=== PATIENT | male | born 1940 | race Caucasian/White ===

== ENCOUNTER 2017-01-12 01:56 | Emergency (ER) | payer MEDICARE, OTHER ==
[2017-01-10 15:15] VITALS: BMI 27.6
[~2017-01-12 01:56] MED LIST: AMITRIPTYLINE H50 MG PO; ASPIRIN81 MG PO; CINNAMON500 MG PO; DOXYCYCLINE HY100 M2 PO; FERROUS SULFAT325 MG PO; FISH OIL 1,0001 CA1 PO; FOLBIC RF TABL1 EACH PO; JANUMET 50-5001 TAB PO; LIPITOR40 MG PO; PLAVIX75 MG PO; VITAMIN D31000 UNIT PO; XANAX0.25 MG PO; ZEBETA5 MG PO; ZOVIRAX200 MG PO
[2017-01-12 03:03] LABS: APPEARANCE HAZY (CLEAR); COLOR PINK (YELLOW)
[2017-01-12 03:04] LABS: AMORPHOUS SEDIMENT <1+ /lpf (NONE SEEN); BACTERIA FEW /hpf (NONE SEEN); BILIRUBIN NEGATIVE (NEGATIVE); EPITHELIAL CELLS NSEEN /hpf (0-5); GLUCOSE NEGATIVE (NEGATIVE); KETONE NEGATIVE (NEGATIVE); LEUKOCYTE ESTERASE 2+ (NEGATIVE); NITRITE NEGATIVE (NEGATIVE); PROTEIN 1+ mg/dL (NEGATIVE); SPECIFIC GRAVITY 1.005 (1.005-1.020); UROBILINOGEN NORMAL (NORMAL); WHITE CELLS - URINE 25-50 /hpf (0-5)
== END 2017-01-12 03:35 | disposition home or self-care (01) ==
LOC: D.ER 01:56
PROVIDERS: Emergency Medicine
DX: N39.0 Urinary tract infection, site not specified (principal); I10 Essential (primary) hypertension; E78.5 Hyperlipidemia, unspecified; C90.00 Multiple myeloma not having achieved remission

== ENCOUNTER 2017-04-18 05:03 | Inpatient (IN) | payer MEDICARE, OTHER ==
[2017-04-18 06:03] LABS: BASOPHILS 0.1 % (0-2); EOSINOPHILS 1.9 % (0-7); HEMOGLOBIN 14.1 g/dL (13.5-17.5); IMMATURE GRANULOCYTES 0.1 % (0-5); LYMPHOCYTES 42.9 % (15-50); MCH 30.7 pg (26.0-34.0); MCHC 33.6 g/dL (31.0-37.0); MCV 91.5 fL (80.0-100.0); MEAN PLATELET VOLUME 10.7 fL (7.4-10.4); RBC 4.59 10x6/uL (4.20-6.10); WBC 6.8 10x3/uL (4.8-10.8)
[2017-04-18 06:05] LABS: PLATELET COUNT 84 10x3/uL (130-400)
[2017-04-18 06:07] LABS: APTT 28.9 SECONDS (22.8-39.4); INR 0.92 (0.85-1.17); PROTIME 12.3 SECONDS (11.6-15.0)
[2017-04-18 06:11] LABS: ALBUMIN 3.9 g/dL (3.4-5.0); ALKALINE PHOSPHATASE 71 U/L (46-116); ALT (SGPT) 23 U/L (10-68); CALC OSMOLALITY 285 mosm/kg (275-300); CALCIUM 9.3 mg/dL (8.5-10.1); CARBON DIOXIDE 26.4 mmol/L (21.0-32.0); CHLORIDE - SERUM 104 mmol/L (98-107); CREATININE - SERUM 1.8 mg/dL (0.6-1.3); GLUCOSE 142 mg/dL (74-106); POTASSIUM - SERUM 4.2 mmol/L (3.5-5.1); SODIUM 138 mmol/L (136-145); UREA NITROGEN 36 mg/dL (7-18); eGFR NON AFRICAN AMERICAN 39 mL/min (90-120)
[2017-04-18 06:23] LABS: CHOL - HDL RATIO 2.8 ratio (2.3-4.9); CHOLESTEROL, TOTAL 124 mg/dL (0-200); CKMB 1.8 U/L (0.0-3.6); CREATINE KINASE 75 UL (21-232); HDL CHOLESTEROL 44 mg/dL (32-96); LDL CHOLESTEROL 47 mg/dL (0-100); LDL-HDL RATIO 1.1 ratio (1.5-3.5); TRIGLYCERIDE 167 mg/dL (30-200); TROPONIN-I < 0.017 ng/mL (0.000-0.060)
[2017-04-18 06:36] LABS: PLATELET ESTIMATE DECREASED
[2017-04-18 09:26] LABS: AMYLASE - SERUM 94 U/L (25-115); LIPASE 422 U/L (73-393)
--- NOTE | 2017-04-18 10:34 | NUR ---
RECEIVED PT FROM ER VIA W/C AAOX4 RESP UNLABORED SKIN W/D COLOR WNL C/O ABD CHEST PAIN 03/31
[2017-04-18 12:23] VITALS: BP 149/69
[2017-04-18 14:20] LABS: CKMB 1.9 U/L (0.0-3.6); CREATINE KINASE 62 UL (21-232)
[2017-04-18 14:24] LABS: TROPONIN-I < 0.017 ng/mL (0.000-0.060)
[2017-04-18 14:36] VITALS: BP 149/69; BMI 26.5
[2017-04-18 19:28] LABS: CKMB 1.1 U/L (0.0-3.6); CREATINE KINASE 42 UL (21-232)
[2017-04-18 19:30] LABS: TROPONIN-I < 0.017 ng/mL (0.000-0.060)
[2017-04-18 20:00] VITALS: BP 127/52
[2017-04-19] VITALS (10 sets, daily range): BP systolic 111–121; BP diastolic 43–67; BMI 23.0
[2017-04-19 05:53] LABS: BASOPHILS 0.1 % (0-2); EOSINOPHILS 0 % (0-7); HEMATOCRIT 42.4 % (42.0-54.0); HEMOGLOBIN 14.2 g/dL (13.5-17.5); IMMATURE GRANULOCYTES 0.3 % (0-5); LYMPHOCYTES 7.4 % (15-50); MCH 30.9 pg (26.0-34.0); MCHC 33.5 g/dL (31.0-37.0); MCV 92.4 fL (80.0-100.0); MONOCYTES 8.4 % (2-11); NEUTROPHILS 83.8 % (40-80); PLATELET COUNT 90 10x3/uL (130-400); RBC 4.59 10x6/uL (4.20-6.10); RDW 14.3 % (11.5-14.5)
[2017-04-19 05:59] LABS: WBC 17.3 10x3/uL (4.8-10.8)
[2017-04-19 06:20] LABS: ALBUMIN 3.4 g/dL (3.4-5.0); ANION GAP 13.2 mmol/L (8-16); BILIRUBIN - TOTAL 0.9 mg/dL (0.2-1.3); C-REACTIVE PROTEIN 14.1 mg/dL (0.0-0.9); CALCIUM 8.5 mg/dL (8.5-10.1); CARBON DIOXIDE 25.2 mmol/L (21.0-32.0); CREATININE - SERUM 1.9 mg/dL (0.6-1.3); POTASSIUM - SERUM 4.4 mmol/L (3.5-5.1); PROTEIN - SERUM 6.7 g/dL (6.4-8.2)
[2017-04-19 16:10] LABS: HEMOGLOBIN 10.1 g/dL (13.5-17.5); MCH 29.8 pg (26.0-34.0); MCHC 32.6 g/dL (31.0-37.0); MCV 91.4 fL (80.0-100.0); MEAN PLATELET VOLUME 11.4 fL (7.4-10.4); PLATELET COUNT 42 10x3/uL (130-400); RBC 3.39 10x6/uL (4.20-6.10); RDW 14.9 % (11.5-14.5); WBC 20.8 10x3/uL (4.8-10.8)
[2017-04-19 16:40] LABS: EOSINOPHILS 1 % (0-7); LYMPHOCYTES 25 % (15-50); MONOCYTES 1 % (2-11); NEUTROPHILS 73 % (40-80); PLATELET ESTIMATE DECREASED
--- NOTE | 2017-04-19 17:30 | NUR ---
REC'D REPORT FROM SAMI, RECOVERY ROOM NURSE, PT DROWSY, AROUSABLE TO VERBAL STIMULI, FOLLOWS COMMANDS, CONFUSED, O2 VIA NC AT 6L CHANGED TO 2 L, SAT 99%, HE IS WEARING HIS GLASSES, ABDOMEN WITH MARCY DRAIN TO RIGHT LOWER SIDE, 75 CC BLOODY DRAINAGE TO BULB, SCD'S IN USE, ASSESSMENT COMPLETED PER FLOWSHEET, C/O PAIN 5/10 TO RIGHT SIDE WHEN COUGHING, PILLOW GIVEN TO HOLD WHILE COUGHING, JYOTI CALLED TO BEDSIDE, STATUS UPDATED, PASSWORD "[id number]" OBTAINED, VOICES NO NEEDS AT THIS TIME, INITIATED NS IVF PER MAR FLOWSHEET, ACCLAMATED TO ICU CALL LIGHT IN REACH
--- NOTE | 2017-04-19 17:36 | NUR ---
PATIENT TAKEN TO ICU, RECOVERED IN ICU ROOM 10 BY RECOVERY ROOM NURSE SAMI ROBLES RN AND MIC MARRERO RN.
--- NOTE | 2017-04-19 19:25 | NUR ---
SHIFT ASSESSMENT COMPLETE, PATIENT SLEEPING WHEN I ENTERED ROOM, WOKE TO VOICE. A&O X4. S1S2 NOTED, NSR, PACEMAKER PACING WITH HR OF 60. LUNG SOUNDS CLEAR. ABDOMEN DISTENDED. INCISIONS X2, WNL. MARCY DRAIN DRAINING BLOODY DRAINAGE. MARCY COMPRESSED. BOWEL SOUNDS HYPOACTIVE. INCONTINENT OF URINE, WEARING BRIEF. PERIPHERAL PULSES +2, PIV IN RH AND LH. DRESSING C/D/I. SCD'S PRESENT. DENIES NEED AT THIS TIME, WILL MONITOR. VSS.
--- NOTE | 2017-04-19 20:00 | NUR ---
DR MARIE AT BEDSIDE. NO NEW ORDERS RECEIVED.
--- NOTE | 2017-04-19 21:00 | NUR ---
NIGHT MEDS GIVEN, AT BEDSIDE.
--- NOTE | 2017-04-19 22:00 | NUR ---
BRIEF SOAKED WITH URINE. CHANGED AND CLEANED UP.
--- NOTE | 2017-04-19 23:05 | NUR ---
REASSESSMENT COMPLETE. SEE FLOWSHEET. NO CHANGES FROM PREVIOUS ASSESSMENT. VSS.
[2017-04-20] VITALS (14 sets, daily range): BP systolic 104–135; BP diastolic 48–84
--- NOTE | 2017-04-20 01:05 | NUR ---
BRIEF SOAKED. CHANGED AND CLEANED UP. TOLERATED WELL.
--- NOTE | 2017-04-20 03:05 | NUR ---
REASSESSMENT COMPLETE, NO ACUTE CHANGES, SEE FLOWSHEET. VSS.
--- NOTE | 2017-04-20 04:00 | NUR ---
BRIEF SOAKED, CHANGED AND CLEANED.
--- NOTE | 2017-04-20 05:20 | NUR ---
RESTING WITH EYES CLOSED, VSS. RR EVEN AND NON LABORED.
[2017-04-20 05:44] LABS: BASOPHILS 0 % (0-2); EOSINOPHILS 0.1 % (0-7); HEMATOCRIT 27.4 % (42.0-54.0); HEMOGLOBIN 9.4 g/dL (13.5-17.5); IMMATURE GRANULOCYTES 0.1 % (0-5); MCH 30.1 pg (26.0-34.0); MCHC 34.3 g/dL (31.0-37.0); MEAN PLATELET VOLUME 9.1 fL (7.4-10.4); MONOCYTES 8.9 % (2-11); NEUTROPHILS 79.9 % (40-80); RBC 3.12 10x6/uL (4.20-6.10); RDW 16.7 % (11.5-14.5)
[2017-04-20 05:59] LABS: ANION GAP 12.5 mmol/L (8-16); BILIRUBIN - TOTAL 0.8 mg/dL (0.2-1.3); CALCIUM 7.3 mg/dL (8.5-10.1); CARBON DIOXIDE 22.9 mmol/L (21.0-32.0); POTASSIUM - SERUM 4.4 mmol/L (3.5-5.1)
[2017-04-20 06:00] LABS: ALBUMIN 2.1 g/dL (3.4-5.0); PROTEIN - SERUM 4.8 g/dL (6.4-8.2)
[2017-04-20 06:01] LABS: MCV 87.8 fL (80.0-100.0); PLATELET COUNT 84 10x3/uL (130-400)
[2017-04-20 06:07] LABS: C-REACTIVE PROTEIN 15.2 mg/dL (0.0-0.9)
[2017-04-20 06:19] LABS: INR 1.37 (0.85-1.17); PROTIME 16.8 SECONDS (11.6-15.0)
--- NOTE | 2017-04-20 07:15 | NUR ---
AROUSES EASILY TO VERBAL STIMULI. ORIENTED. NO C/O PAIN. SEE FLOWSHEET FOR ASSESSMENT
--- NOTE | 2017-04-20 09:00 | NUR ---
AT BEDSIDE. CONDITION UPDATE GIVEN. NO DISTRESS NOTED.
--- NOTE | 2017-04-20 11:30 | NUR ---
UP IN CHAIR WITH ASSISTANCE FROM PT. NO DISTRESS NOTED.
--- NOTE | 2017-04-20 13:00 | NUR ---
BACK TO BED. SOMEWHAT CONFUSED. BED ALARM ON. REORIENTED TO PLACE AND SITUATION.
--- NOTE | 2017-04-20 14:00 | NUR ---
ATTEMPTING TO GET OOB. REORIENTED AND BED ALARM ON.
--- NOTE | 2017-04-20 16:50 | NUR ---
TRANSFERRED TO ROOM 2226 VIA BED. NURSE TO RECEIVE. FAMILY AT BEDSIDE.
--- NOTE | 2017-04-20 17:43 | NUR ---
REHAB PRESCREEN: PT WILL REQUIRE AT PT AND OT EVAL TO BE ABLE TO DO A SCREEN. WILL FOLLOW UP WHEN EVALS ARE DONE. THANK YOU FOR THIS EVAL. MERLINE ALARCON LPN
[2017-04-21] VITALS (20 sets, daily range): BP systolic 91–150; BP diastolic 55–82
[2017-04-21 06:06] LABS: BASOPHILS 0 % (0-2); EOSINOPHILS 1.2 % (0-7); HEMATOCRIT 23.6 % (42.0-54.0); HEMOGLOBIN 7.9 g/dL (13.5-17.5); IMMATURE GRANULOCYTES 0.2 % (0-5); LYMPHOCYTES 15.7 % (15-50); MCH 29.2 pg (26.0-34.0); MCHC 33.5 g/dL (31.0-37.0); MCV 87.1 fL (80.0-100.0); MONOCYTES 6.8 % (2-11); NEUTROPHILS 76.1 % (40-80); PLATELET COUNT 71 10x3/uL (130-400); RBC 2.71 10x6/uL (4.20-6.10); RDW 15.9 % (11.5-14.5); WBC 5.9 10x3/uL (4.8-10.8)
[2017-04-21 06:25] LABS: ALBUMIN 1.9 g/dL (3.4-5.0); ANION GAP 11.8 mmol/L (8-16); BILIRUBIN - TOTAL 0.5 mg/dL (0.2-1.3); CALCIUM 7.3 mg/dL (8.5-10.1); CARBON DIOXIDE 23.2 mmol/L (21.0-32.0); CREATININE - SERUM 1.8 mg/dL (0.6-1.3); INR 1.18 (0.85-1.17); MAGNESIUM - SERUM 1.7 mg/dL (1.8-2.4); PHOSPHOROUS 2.2 mg/dL (2.5-4.9); PROTEIN - SERUM 4.7 g/dL (6.4-8.2); PROTIME 14.9 SECONDS (11.6-15.0)
[2017-04-21 06:39] LABS: C-REACTIVE PROTEIN 23.2 mg/dL (0.0-0.9)
--- NOTE | 2017-04-21 07:30 | NUR ---
RECIEVED PT DURING WALKING ROUNDS. PT ASKING FOR ASSISTANCT TO URINATE. PT STOOD ON SIDE OF BED WITH MINIMAL ASSISTANCE. ASSITED PT BACK TO BED. ASSESSMENT DONE PER FLOWSHEET. BED IN LOW POSITION AND CALL LIGHT WITHIN REACH. WILL CONTINUE TO MONITOR.
--- NOTE | 2017-04-21 11:50 | NUR ---
MARCY DRAIN REMOVED BY , DRESSING APPLIED. PT RESTING IN BED WITH NO COMPLAINTS OF PAIN OR DISCOMFORT. BED IN LOW POSITION AND CALL LIGHT WITHIN REACH.
[2017-04-22 00:40] VITALS: BP 99/63
[2017-04-22 04:00] VITALS: BP 118/54
[2017-04-22 05:40] LABS: BASOPHILS 0 % (0-2); EOSINOPHILS 1.6 % (0-7); IMMATURE GRANULOCYTES 0.1 % (0-5); LYMPHOCYTES 11.9 % (15-50); MCH 29.5 pg (26.0-34.0); MCHC 34.5 g/dL (31.0-37.0); MCV 85.5 fL (80.0-100.0); MEAN PLATELET VOLUME 10.3 fL (7.4-10.4); MONOCYTES 7.4 % (2-11); RDW 15.1 % (11.5-14.5)
[2017-04-22 05:48] LABS: HEMATOCRIT 30.7 % (42.0-54.0); HEMOGLOBIN 10.6 g/dL (13.5-17.5); PLATELET COUNT 98 10x3/uL (130-400); RBC 3.59 10x6/uL (4.20-6.10); WBC 7.7 10x3/uL (4.8-10.8)
[2017-04-22 06:05] LABS: ALBUMIN 2.3 g/dL (3.4-5.0); ANION GAP 12.4 mmol/L (8-16); CALCIUM 7.6 mg/dL (8.5-10.1); CARBON DIOXIDE 22.4 mmol/L (21.0-32.0); CREATININE - SERUM 1.6 mg/dL (0.6-1.3); POTASSIUM - SERUM 3.8 mmol/L (3.5-5.1); PROTEIN - SERUM 5.6 g/dL (6.4-8.2)
--- NOTE | 2017-04-22 06:32 | NUR ---
PT HAS 11 LOOSE STOOLS THROUGHOUT NIGHT. CDT CAME BACK POSITIVE. PLACED PT IN ENTERIC ISOLATION. USING BLEACH WIPES FOR CLEANING IN ROOM. INFUSED 2ND UNIT OF PRBC'S - NO ADVERSE REACTION AND VITAL SIGNS STABLE. RIGHT SIDE DRAIN SITE LEAKING SEROSANG FLUID. CHANGED DRESSING. GAVE ZOFRAN FOR NAUSEA ONCE THIS AM. BUTTOCKS REDDENED FROM DIARRHEA. APPLYING BUTT PASTE NEEDED. NO OTHER NEEDS. AT BEDSIDE. WILL CONTINUE TO MONITOR.
--- NOTE | 2017-04-22 07:13 | NUR ---
REPORT RECEIVED FROM TUBING MACHINE OPERATOR NURSE. CALL LIGHT IN REACH.
--- NOTE | 2017-04-22 08:45 | NUR ---
ASSESSMENT COMPLETED. AM MEDS ADMINISTERED. CALL LIGHT IN REACH. WILL CONTINUE WITH PLAN OF CARE.
[2017-04-22 08:48] VITALS: BP 147/71
--- NOTE | 2017-04-22 10:36 | NUR ---
PHYSICAL THERAPY IN ROOM AT THIS TIME. CALL LIGHT IN REACH.
--- NOTE | 2017-04-22 12:27 | OP ---
PATIENT NAME: JONI COTTER MEDICAL RECORD: [id number] :40 LOCATION:[id number] ADMISSION DATE:04/19/17 SURGEON: LILIANA HOU MD DATE OF OPERATION: 04/19/2017 SURGEON: Liliana Hou MD PREOPERATIVE DIAGNOSES: 1. Acute cholecystitis. 2. Acute pancreatitis. 3. Multiple myeloma. 4. Thrombocytopenia. 5. Chronic renal disease. 6. Coronary artery disease. POSTOPERATIVE DIAGNOSIS: 1. Acute cholecystitis. 2. Acute pancreatitis. 3. Multiple myeloma. 4. Thrombocytopenia. 5. Chronic renal disease. 6. Coronary artery disease. PROCEDURE PERFORMED: Laparoscopic cholecystectomy. ANESTHESIA: General. COMPLICATIONS: Acute blood loss secondary to coagulopathy. Case was clean contaminated. ESTIMATED BLOOD LOSS: 1500 cc. OPERATIVE COURSE: After consent was obtained, the patient was taken to the operating room and placed in the supine position on the operating table. Next, general anesthesia was given via endotracheal intubation after a timeout was taken to confirm the correct patient and procedure. After a timeout was performed, the abdomen was prepped and draped in typical sterile fashion. Local anesthetic was injected just above the umbilicus. A stab incision was made with 11-blade scalpel. The abdomen was insufflated. The patient was placed in steep reverse Trendelenburg position. At this time, all remaining trocars were placed; two 5-mm trocars in the right upper quadrant and 11-mm trocar in the subxiphoid position. The gallbladder was markedly inflamed and indurated. It was unable to be grasped. At this time, the decompression needle was placed into the gallbladder and purulent fluid was suctioned within the gallbladder wall. Once the gallbladder was moderately decompressed, the fundus was grabbed and retracted cephalad. The infundibulum was retracted laterally. At this time, the peritoneum was incised using electrocautery. Meticulous dissection was performed with a combination of blunt dissection and a [place] dissector until the critical view was obtained. Two clips were place in the cystic artery. Three clips were placed in the proximal cystic duct. The duct and artery were then transected with laparoscopic Metzenbaum scissors. The remaining portion of the gallbladder was dissected off the liver bed. Once complete, it was grasped with the tenaculum and removed through the 11-mm trocar and sent for permanent pathology. There was marked inflammation of the entire OPERATIVE REPORT [id number] JONI COTTER liver bed. Liver bed was diffusely oozing from all raw surfaces. An attempt to control hemorrhage, the 11-mm trocar was mildly opened. A lap sponge was placed in the abdomen and pressure was held on the liver bed for approximately 25 minutes. Once this was complete, NU-KNIT was placed onto the liver bed and onto the site of operative dissection. The lap sponge was replaced and held in place for approximately 20 minutes. Copious irrigation and suction was performed. Approximately 1-1/2 liters of blood loss. The abdomen was irrigated with approximately 4 liters of fluid. At this time, the lap sponge was removed. There was no obvious bleeding. Two packs of Juan were placed into the liver bed and operative site. Again at this point, a new lap sponge was placed and held pressure for approximately another 10 minutes. The patient was transfused 2 units of PRBC, a MARCY drain was placed. Lap sponges removed. There was no active bleeding, no evidence of bile leak. All clips placed, [address] in the cystic duct, [address] in the cystic artery. The lap sponge was removed. The remaining portion of the abdomen was copiously irrigated and suctioned. No evidence of bowel injury. No evidence of bleeding. At this time, all remaining instruments were removed. The abdomen was desufflated. Trocars removed. Fascial incision was closed with 0 Vicryl suture. Skin was closed with 4-0 Monocryl, Mastisol and Steri-Strips. The MARCY drain was secured using a 3-0 nylon suture. At the end of the case, all needle and instrument counts were correct. No complications occurred. The patient was extubated and transferred to the ICU in hemodynamically stable condition. TRANSINT:[id number] Voice Confirmation ID: [id number] DOCUMENT ID: [id number] LILIANA HOU MD at 1227 CC: [id number] DICTATION DATE: 04/19/17 162 BANQUET CAPTAIN: 04/19/17 2[id number] [place] [address]
[2017-04-22 12:36] VITALS: BP 114/56
--- NOTE | 2017-04-22 12:59 | NUR ---
PROCALAMINE INITIATED @ 75 CC/HR VIA PUMP PER MD ORDER. FLORANEX PO. DR. LOPEZ AND KATHERINE, IN ROOM.
--- NOTE | 2017-04-22 13:55 | NUR ---
Patient Name: JONI COTTER Admission Status: ER Accout number: [id number] Admission Date: 04-19-2017 : 1940 Admission Diagnosis: Attending: FRANK, Current LOS: 3 Anticipated DC Date: 04-25-2017 Planned Disposition: Home Primary Insurance: MEDICARE A & B Discharge Planning Comments: CM MET WITH PATIENT REGARDING D/C NEEDS AND PLANS. PATIENT STATED HIS (RADHA) WILL DRIVE HIM HOME WHEN DISCHARGED. PATIENT STATED HE HAS 1 STEPS TO ENTER HOME AND 1 STAIRCASE INSIDE (DOES NOT HAVE TO USE). PATIENT IS INDEPENDENT WITH HIS CARE AND HAS A CANE AND BUILT IN SHOWER CHAIR AT HOME. PATIENTS PCP IS DR. MARIE AND PHARMACY IS [facility] [address]. PATIENT DOES NOT WANT HOME HEALTH AND STATED HE SAID NO WHEN SHE ALSO MENTIONED HOME HEALTH. CM WILL CONTINUE TO FOLLOW PATIENT WITH D/C NEEDS AND PLANS. PCP DR. FRANK [facility] [address] - [phone] [facility] () [phone] Facilities Assistant: Jeri Parrish Is the patient Alert and Oriented? Yes 0 * How many steps to enter\exit or inside your home? 1 0 * PCP DR. MARIE 0 * Pharmacy [facility] [address] 0 * Preadmission Environment Home with Family 0 * ADLs Independent 0 * Equipment Cane 0 * Other Equipment BUILT IN SHOWER CHAIR 0 * List name and contact numbers for known caregivers / representatives who currently or will assist patient after discharge: RADHA () [phone] 0 * Community resources currently utilized None 0 * Additional services required to return to the preadmission environment? Yes 0 * Can the patient safely return to the preadmission environment? Yes 0 * Has this patient been hospitalized within the prior 30 days at any hospital? No 0 Grand Total: 0
--- NOTE | 2017-04-22 14:55 | NUR ---
GREEN PRIZE PACKER FOUND PATIENT SITTING ON FLOOR AT APPROXIMATELY 1445. STATES HE HIT HIS HEAD BUT THERE IS NO PAIN. DR. LOPEZ AWARE. ALSO AWARE AT THIS TIME.
--- NOTE | 2017-04-22 15:20 | NUR ---
ANDREAS MANN. IN ROOM. CALL LIGHT IN REACH.
[2017-04-22 15:56] VITALS: BP 153/65
--- NOTE | 2017-04-22 16:53 | NUR ---
HELPED TO BR AND BACK TO BED. FLAGYL 500 MG IVPB. CALL LIGHT IN REACH.
--- NOTE | 2017-04-22 18:51 | NUR ---
NO CHANGES IN INIIAL ASSESSMENT. CALL LIGHT IN REACH. WILL CONTINUE WITH PLAN OF CARE.
[2017-04-22 20:00] VITALS: BP 108/60
--- NOTE | 2017-04-22 20:04 | NUR ---
PT HERE FOR PANCREATITIS FOR THIS VISIT. PT DENIES NEEDS AT THIS TIME IV PATENT AND INTACT AT THIS TIME SRX2 BED AT LOWEST SETTING CALL LIGHT WITHIN REACH WILL CONTINUE TO MONITOR
--- NOTE | 2017-04-22 22:30 | NUR ---
PATIENT'S BATHROOM LIGHT GOING OFF, GOWNED UP FOR ENTERIC ISOLATION PRECAUTIONS, LOT BOSS ALREADY IN ROOM ASSISTING PATIENT BACK TO BED, PATIENT IS AMBULAING WITH MINIMAL ASSISTANCE. AT BEDSIDE. PATIENT DOES NOT APPEAR TO BE IN ANY DISTRESS AT THIS TIME. PATIENT AND DENY NEEDS.
[2017-04-23 04:53] LABS: BASOPHILS 0 % (0-2); EOSINOPHILS 2.8 % (0-7); HEMATOCRIT 27.5 % (42.0-54.0); HEMOGLOBIN 9.5 g/dL (13.5-17.5); IMMATURE GRANULOCYTES 0.3 % (0-5); LYMPHOCYTES 13.5 % (15-50); MCH 29.5 pg (26.0-34.0); MCHC 34.5 g/dL (31.0-37.0); MCV 85.4 fL (80.0-100.0); MEAN PLATELET VOLUME 10.4 fL (7.4-10.4); MONOCYTES 8.8 % (2-11); NEUTROPHILS 74.6 % (40-80); RBC 3.22 10x6/uL (4.20-6.10); RDW 15.4 % (11.5-14.5)
[2017-04-23 04:58] LABS: PLATELET COUNT 74 10x3/uL (130-400)
[2017-04-23 05:13] LABS: ALBUMIN 1.9 g/dL (3.4-5.0); ANION GAP 13.5 mmol/L (8-16); BILIRUBIN - DIRECT 0.12 mg/dL (0.00-0.30); BILIRUBIN - INDIRECT 0.36 mg/dL (0.00-1.00); BILIRUBIN - TOTAL 0.48 mg/dL (0.2-1.3); CALCIUM 7.3 mg/dL (8.5-10.1); CARBON DIOXIDE 19.9 mmol/L (21.0-32.0); CREATININE - SERUM 1.4 mg/dL (0.6-1.3); POTASSIUM - SERUM 3.4 mmol/L (3.5-5.1)
[2017-04-23 05:39] VITALS: BP 113/57
--- NOTE | 2017-04-23 07:24 | NUR ---
REPORT RECEIVED FROM YARN MERCERIZER OPERATOR HELPERMANSOOR DUMAS. CALL LIGHT IN REACH.
[2017-04-23 08:05] VITALS: BP 128/82
--- NOTE | 2017-04-23 09:44 | NUR ---
PT AWAKE AND ALERT. EATING BREAKFAST. DENIES ANY NEEDS AT THIS TIME.
--- NOTE | 2017-04-23 09:45 | NUR ---
ASSESSMENT COMPLETED. AM MEDS ADMINISTERED. BED ALARM ON. REFUSES SCDs. WILL CONTINUE WITH PLAN OF CARE.
--- NOTE | 2017-04-23 11:20 | NUR ---
ASSISTED TO BR AND BACK TO BED. BED ALARM TURNED ON AT THIS TIME.
--- NOTE | 2017-04-23 12:24 | NUR ---
Rehab Note- Visited with the patient and his . He is tired of being in the hospital and just wants to discharge home and participate in outpatient therapy. Provided information and contact for acute inpatient rehab information in case failed attempt after getting home. Informed AIME Wilcox of the patient and his 's dischare plan. Thank you for this referral! Bree Kaiser RN Clinical Liaison, [facility] Rehab
[2017-04-23 12:28] VITALS: BP 130/80
--- NOTE | 2017-04-23 12:55 | NUR ---
IN ROOM AT THIS TIME. DENIES NEEDS AT THIS TIME.
[2017-04-23] MEDS ORDERED: MUCINEX600 MG PO (13:17)
[2017-04-23] MEDS ORDERED: TESSALON PERLE100 MG PO (13:17)
--- NOTE | 2017-04-23 13:18 | NUR ---
DC REASSESSMENT : PATIENT IS DISCHARGING HOME TODAY WITH OP PHYSICAL THERAPY AT [facility]. IS DRIVING PATIENT HOME AND HAS NO OTHER NEEDS FOR DISCHARGE. PATIENTS APPOINTMENT IS 12:00PM SATURDAY AND EXPLAINED TO - PATIENT NEEDS TO BE THERE 10 MIN EARLY TO REGISTER. DIRECTIONS GIVEN TO FACILITY
[2017-04-23] MEDS ORDERED: HYDROCODON-ACE1 EAC7 PO (13:30)
[2017-04-23] MEDS ORDERED: IPRAT-ALBUT 0.5-3 ML UPD (13:30)
[2017-04-23] MEDS ORDERED: FLAGYL500 MG PO (13:31)
[2017-04-23] MEDS ORDERED: FLORAJEN3 CAPS460 MG PO (13:31)
[2017-04-23] MEDS ORDERED: VENTOLIN HFA18 GM INH (14:13)
--- NOTE | 2017-04-23 14:35 | NUR ---
OTHER MEDS ADMINISTERED PER ORDER, WILL TAKE IV WITHIN THE NEXT 10-15 MINUTES.
--- NOTE | 2017-04-23 15:41 | NUR ---
DC INSTRUCTIONS EXPLAINED TO PATIENT AND . RX FOR NORCO HANDED TO PATIENT. DC'D TO VEHICLE VIA WC WITH .
== END 2017-04-23 15:41 | disposition home or self-care (01) | DRG 417 ==
LOC: D.ER 05:03 → D.M2 08:17 → OBSVTIME 08:17 → D.ICU 04-19 15:21 → D.MS 04-19 17:34 → D.ICU 04-19 17:34 → D.MS 04-20 16:55
PROVIDERS: Family Medicine; Surgery; ADMIT Family Medicine
PROC: 0FT44ZZ Resection of Gallbladder, Percutaneous Endoscopic Approach (ICD-10-PCS; principal; 2017-04-19 13:30)
DX: K80.00 Calculus of gallbladder with acute cholecystitis without obstruction (principal); K85.90 Acute pancreatitis without necrosis or infection, unspecified; C90.00 Multiple myeloma not having achieved remission; N17.9 Acute kidney failure, unspecified; D62 Acute posthemorrhagic anemia; E87.1 Hypo-osmolality and hyponatremia; A04.72 Enterocolitis due to Clostridium difficile, not specified as recurrent; D69.6 Thrombocytopenia, unspecified; I12.9 Hypertensive chronic kidney disease with stage 1 through stage 4 chronic kidney disease, or unspecified chronic kidney disease; N18.9 Chronic kidney disease, unspecified; I25.119 Atherosclerotic heart disease of native coronary artery with unspecified angina pectoris; E78.5 Hyperlipidemia, unspecified; Z95.0 Presence of cardiac pacemaker; I71.4 Abdominal aortic aneurysm, without rupture; F41.9 Anxiety disorder, unspecified

== ENCOUNTER → 2017-05-02 14:57 | Outpatient (CLI) | payer MEDICARE, OTHER ==
[2017-04-19 13:16] VITALS: BMI 23.0
[~2017-05-02 14:57] MED LIST changes: +FLAGYL500 MG PO; +FLORAJEN3 CAPS460 MG PO; +HYDROCODON-ACE1 EAC7 PO; +IPRAT-ALBUT 0.5-3 ML UPD; +MUCINEX600 MG PO; +TESSALON PERLE100 MG PO; +VENTOLIN HFA18 GM INH
== END | disposition home or self-care (01) ==
LOC: D.LABREF 14:57
DX: I48.2 Chronic atrial fibrillation (principal)

== ENCOUNTER → 2018-03-21 13:00 | Outpatient (CLI) | payer MEDICARE, OTHER ==
[2017-04-19 13:16] VITALS: BMI 23.0
== END | disposition home or self-care (01) ==
LOC: D.CT 13:00
DX: I71.3 Abdominal aortic aneurysm, ruptured (principal)

== ENCOUNTER → 2018-12-23 12:58 | Outpatient (CLI) | payer MEDICARE, BC ==
[2017-04-19 13:16] VITALS: BMI 23.0
--- NOTE | ~2018-12-23 | EC ---
PATIENT:JONI COTTER DATE OF SERVICE: 12/23/18 SEX: M MEDICAL RECORD: [id number] DATE OF : 40 [facility] AGE [facility] PAT[facility]: 78 ADMISSION DATE: 12/23/18 REFERRING PHYSICIAN: INTERPRETING PHYSICIAN: VICKI CARTER MD ECHOCARDIOGRAM REPORT ECHO CHARGES 4 ECHO COMPLETE Date: 12/23/18 CLINICAL DIAGNOSIS: HTN/AI/MR/TR HX OF CHEMO,AFIB,CAD/PACEMAKER ECHOCARDIOGRAPHIC MEASUREMENTS (adult normal given) AC root (d.<3.7cm) 3.6 cm LV Septum d (<1.2 cm> 1.4 cm Valve Excursion 1.9 cm LV Septum (systole) 1.6 cm Left Atria (s.<4.0cm> 4.8 cm LVPW d(<1.2cm) 1.4 cm RV (d.<2.3cm) 3.7 cm LVPW (sytole) 1.8 cm LV diastole(<5.6CM) 5.2 cm MV E-F(>70mm/sec) cm LV systole 3.7 cm LVOT Diameter 2.2 cm MV exc.(>10mm) 1.4 cm Est.ejection fraction (50-75%) % DOPPLER: LVIT cm/sec A 114 cm/sec E 54.0 cm/sec LA cm/sec RVSP 41 mmHg LVOT 170 cm/sec AOP1/2T 472 m/s Asc. Ao 221 cm/sec RVOT 113 cm/sec RA cm/sec PA 158 cm/sec AV Gradient Peak 19.57mmHg AV Mean 11.38mmHg AV Area 3.1 cm MV Gradient Peak 7.15 mmHg MV Mean 2.97 mmHg MV Area cm COMMENTS: Power Machine Operator: Lalo ANNE Rn Telephonic: Jatinder Carter TAPE# PACS Pericardial Effusion N DATE OF SERVICE: 12/23/2018 FINDINGS: 1. Left ventricular chamber size is within normal limits. Left ventricular systolic function is normal. Overall ejection fraction is estimated at 55%. 2. Left atrium is enlarged at 4.8 cm. Right atrium and right ventricular chamber sizes are within normal limit. 3. Valvular structures have normal structure and motion. 4. Doppler interrogation reveals mild aortic insufficiency, mild mitral regurgitation, and mild tricuspid regurgitation. No other valvular ECHOCARDIOGRAM REPORT [id number] JONI COTTER insufficiency or stenosis. Pulmonary systolic pressure is estimated at 41 mmHg. 5. No evidence of pericardial effusion or left ventricular thrombus. TRANSINT:[id number] Voice Confirmation ID: [id number] DOCUMENT ID: [id number] VICKI CARTER MD CC: [id number] DICTATION DATE: 12/23/181729 SHORTS SIFTER: 12/23/182002 [facility] [address] [id number]
== END | disposition home or self-care (01) ==
LOC: D.HCCARDIO 12:58
PROVIDERS: ATTEND Internal Medicine Interventional Cardiology
DX: I10 Essential (primary) hypertension (principal)

== ENCOUNTER → 2020-02-10 13:40 | Outpatient (CLI) | payer MEDICARE, BC ==
[2017-04-19 13:16] VITALS: BMI 23.0
== END | disposition home or self-care (01) ==
LOC: D.HCCECHO 13:40
PROVIDERS: ATTEND Internal Medicine Cardiovascular Disease
DX: I25.10 Atherosclerotic heart disease of native coronary artery without angina pectoris (principal)

== ENCOUNTER → 2020-03-02 13:38 | Outpatient (CLI) | payer MEDICARE, BC ==
[2017-04-19 13:16] VITALS: BMI 23.0
== END | disposition home or self-care (01) ==
LOC: D.CT 13:30
PROVIDERS: ATTEND Internal Medicine Cardiovascular Disease
DX: I71.4 Abdominal aortic aneurysm, without rupture (principal)